=== PATIENT | female | born 1990 | race Caucasian/White ===

== ENCOUNTER 2019-03-29 11:20 | Inpatient (IN) | payer MEDICAID, OTHER ==
[~2019-03-29] VITALS: Ht 157.5 cm; Wt 88.4 kg
[2019-03-29 11:38] VITALS: BP 135/77; PULSE 67; RESP 19; Ht 157.5 cm; Wt 88.4 kg
[2019-03-29] MEDS ORDERED: PREN-99 PO (11:40)
--- NOTE | 2019-03-29 14:30 | TRIAGE ---
OB Triage Datetime Report Generated by CPN: 03/29/2019 14:30 Datetime: 03/29/2019 13:10 Stage of : Antepartum Datetime: 03/29/2019 11:43 Stage of : OB Triage Assessment Type: Triage Maternal Assessment Level of Consciousness: Fully Conscious DTR's/Clonus: DTRs 2+; No Clonus Headache: Denies Blurred Vision: No Respiratory Effort: Unlabored; Regular Rhythm; Equal Expansion Breath Sounds, Left: Clear and Equal Breath Sounds, Right: Clear and Equal Nausea/Vomiting: Denies RUQ Epigastric Pain: Denies Lower Extremities Edema: None Degree: None Upper Extremities Edema: None Degree: None Facial Edema: None Temperature Route: Oral Fall Risk Assessment History of Falling: (0) No Secondary Diagnosis: (0) No Ambulatory Aid: (0) Bedrest/Nurse Assist IV Therapy: (0) No Gait: (0) Normal/Bedrest/Immobile Mental Status: (0) Oriented to Own Ability Fall Score: 0 Fall Risk Score Definition: No Risk: No action required Labor Evaluation Frequency: x2 Monitor Mode: External Duration (sec)2399: 40 Quality: Mild Resting Tone [place]: Relaxed Heart Rate FHR Baseline Rate: 125 Monitor Mode: External US FHR Baseline Changes: No Baseline Change Variability: Moderate 6-25 bpm Accelerations: 15X15 Decelerations: None Category: Category I Pain Assessment Pain Scale: 7 Pain Presence: Constant Pain Type: Ache Pain Location: Back Datetime: 03/29/2019 11:41 Time of Arrival: 03/29/2019 11:17 EGA: 35.0 Arrived By: Ambulatory Arrived From: Home Chief Complaint: back pain and epigastric pain Movement: Present Contractions: Denies/Absent Rupture of Membranes: Denies Vaginal Bleeding: None Vaginal Discharge: Denies Recent Sexual Intercouse: Denies Abdominal Trauma: Not Applicable Patient Complaints: Back Pain; Epigastric Pain Initial Plan: WILL, EFM
[2019-03-29] MEDS ORDERED: MAGNESIUM SULFATE 4 GM/100 ML 100 ML IV ONE (15:00)
[2019-03-29] MEDS: LACTATED RINGER'S 1,000 ML IV SCH (15:21)
[2019-03-29] MEDS: BETAMET NA PHOS/AC(6 MG/ML) 2 ML INJ SYG IM SCH (15:29)
[2019-03-29] MEDS: MAGNESIUM SULFATE 20 GM/500 ML 500 ML IV SCH (16:00)
--- NOTE | 2019-03-29 17:35 | HP ---
Date/Time of Note Date/Time of Note DATE: 03/29/19 TIME: 17:31 OB - History Hx of Present Free Text/Dictation March 29, 2019 : 3 Para: 0 Spontaneous : 0 Therapeutic : 0 Other Concerns: 28-year-old G3, P0 with IUP at 35 weeks and mild chronic hypertension was sent from the clinic for further evaluation due to borderline elevated blood pressure during office visit in the range of 130s 140s over 80s. Patient also was noted to have borderline lower AKBAR. AKBAR was 7.3. Patient denies any leaking of fluid, vaginal bleeding decreased movement. Reports back pain and epigastric pain. Reports pain in the right upper quadrant and right upper back. Per patient pain starts from the back and radiates to the front right upper quadrant. Patient denies any headache, blurred vision, scotoma, leaking of fluid, vaginal bleeding or decreased movement. During observation monitoring triage blood pressure is between 130s 150s over 80s. Noted to have elevated LFT and PIH lab mildly. Due to concern for possible superimposed preeclampsia patient admitted for observation and 24-hour urine protein collection and close monitoring of blood pressure as well as a sta rted on magnesium due to right upper quadrant pain as well as elevated LFT. Past Family/Social History * Past Medical, Surgical, Family and Obstetric Histories reviewed from chart. OB Admission Exam Vital Signs Vital Signs Vital Signs Date Temp Pulse Resp B/P (MAP) Pulse Ox O2 O2 Flow FiO2 Time Delivery Rate 03/29/19 97.8 67 19 135/77 Room Air 11:38 (96) Physical Exam HEENT: WNL Lungs: Clear Abdomen: WNL Extremities: Normal Cervical Dilatation: None Effacement: 0% Membranes: Intact Heart Rate: 130's Accelerations: Accelerations Present Varibility: Moderate Contractions on Admission: >10 Minutes Apart Intensity: Mild Last 72 hours Lab Results CBC & BMP 03/29/19 12:11 Liver Function Test 03/29/19 12:11 Alanine Aminotransferase (ALT/SGPT) 84 H Albumin 3.6 Alkaline Phosphatase 193 H Aspartate Amino Transf (AST/SGOT) 62 H Direct Bilirubin 0.00 Total Protein 7.5 OB Assessment/Plan Other Assessment: IUP at 35 weeks Epigastric pain and right upper back pain with elevated blood pressure as well as right upper quadrant pain associated with elevated mildly liver function test Due to concern for possible superimposed preeclampsia patient will be admitted for observation and close monitoring Patient will be started on magnesium for seizure prophylaxis we will monitor blood pressure closely. Start 24-hour urine protein collection And start steroid. Perinatology/neonatology consultation Elevated liver function test unclear etiology. Right upper quadrant pain with radiation to the back. Hepatitis panel requested as well as right upper quadrant ultrasound with lipase and amylase Follow-up with the results Continuous monitoring Strict urine output measurements Magnesium sulfate per protocol Plan of care discussed with the patient and with the RN MICHAELA CAMPBELL MD March 29, 2019 17:35
[2019-03-30] MEDS: MAGNESIUM SULFATE 20 GM/500 ML 500 ML IV SCH ×4 (01:28→22:30)
[2019-03-30] MEDS: LACTATED RINGER'S 1,000 ML IV SCH ×2 (01:29→14:22)
[2019-03-30] MEDS: PRENATAL VITAMIN PO SCH (09:09)
--- NOTE | 2019-03-30 12:01 | CONS ---
DATE OF ADMISSION: 03/29/2019 DATE OF CONSULTATION: 03/30/2019 HISTORY OF PRESENT ILLNESS: The patient is a at 35 weeks, presented with elevated blood pressu re, epigastric pain, elevated liver function tests. RECOMMENDATIONS: Delivery secondary to severe preeclampsia over 34 weeks and continue magnesium sulf ate 24 hours after delivery. Dictated By: JUANA VELASQUEZ MD ST/NTS Conf#: [id number] DID#: [id number] CC: KENIA REYES MD;*EndCC*
--- NOTE | 2019-03-30 12:33 | QN ---
Documentation Comment progress note patient seen and evaluated patient report her epigstric mildly improved with mg vs stable afebrile ab gravid, mild epigastric tenderness extremity no edema no calf tenderness a/iup at 35 wks ga, preeclampsia with severe features desire cd vs induction p/ keep pt npo neonatology consult steroid treatment cosent for amina CD r/b/a explained in detail KENIA REYES MD March 30, 2019 12:33
--- NOTE | 2019-03-30 12:36 | HPN ---
Date/Time of Note Date/Time of Note DATE: 03/30/19 TIME: 12:35 Interval H&P Admission Note Pt. seen H&P reviewed: Systems changes noted below iup at 35 wks ga, preeclampsia with severe features, desire elective CD KENIA REYES MD March 30, 2019 12:36
[2019-03-30] MEDS: BETAMET NA PHOS/AC(6 MG/ML) 2 ML INJ SYG IM SCH (14:14)
[2019-03-30] MEDS ORDERED: OXYTOCIN 30 UNITS/LR 500 ML IV PRN ×2 (15:00→19:30)
[2019-03-30] MEDS ORDERED: METHYLERGONOVINE 0.2 MG INJ IM PRN ×2 (15:00→19:30)
[2019-03-30] MEDS ORDERED: CEFAZOLIN 2 GM/50 ML (PMX) 50 ML IVPB SCH (15:00)
[2019-03-30] MEDS ORDERED: MISOPROSTOL 200 MCG TAB PR PRN ×2 (15:00→19:30)
[2019-03-30] MEDS ORDERED: CARBOPROST 250 MCG INJ IM PRN ×2 (15:00→19:30)
--- NOTE | 2019-03-30 15:18 | CONS ---
Consultation Date/Type/Reason Admit Date/Time March 29, 2019 at 13:10 Date of Consultation: March 30, 2019 Type of Consult Neonatology Reason for Consultation PIH and schedule delivery Date/Time of Note DATE: 03/30/19 TIME: 14:48 Hx of Present Illness Asked to do neonatology, Mother is 28-year-old 3 para 0 TAB 2 per chart and earlier history (g ravida 2 TAB 1 per mom admitted for high blood pressure. Also has elevated liver functions. ultrasound in January was normal except for large for gestational age but no signs of diabetes. Mother denies illnesses medication smoking drugs alcohol although used to smoke before the She is blood type O- RPR negative hepatitis B surface antigen negative HIV negative group B strep was not done. She received RhoGam during this but does not remember if she received RhoGam after the therapeutic . She received betamethasone 2 doses the last one on 03/30 at 1250 hrs. She was started on magnesium sulfate on 03/29. Mother was accompanied in room by her mom. There is a involved. We spoke extensively about the risk for neurodevelopmental problems related to pr ematurity and more importantly about risks related to prematurity such as respiratory, apnea, infection, hyperbilirubinemia, blood sugar and electrolyte derangements, feeding difficulties requiring gavage feeding and intravenous fluids and many other problems related to prematurity. Possible 2 or 3 weeks hospitalization depending on problems related to prematurity versus regular couplet care, breast-feeding encouraged. I answered all mom's questions to her satisfaction. I spent about 25minutes with the mother between (her mother was also present) and more than 50% was related to counseling and coordination of care. Thank you for allowing me to assist in the care of this family NICU involvement as needed on your request. Past Medical History Home Meds Reported Medications Vit #76/Iron,Carb/FA (Pnv 29-1 Tablet) 1 Each Tablet, 1 EACH PO DAILY, TAB 03/29/19 Medications Current Medications Lactated Ringer's 1,000 ml @ 75 mls/hr [id number] IV Last administered on 03/30/19at 14:22; Admin Dose 75 MLS/HR; Start 03/29/19 at 14:31 Magnesium Sulfate 500 ml @ 50 mls/hr Q10H IV Last administered on 03/30/19at 11:32; Admin Dose 50 MLS/HR; Start 03/29/19 at 14:31 Betamethasone Acet/Betameth SodPhos (Celestone Soluspan) 12 mg Q24H IM Last administered on 03/30/19at 14:14; Admin Dose 12 MG; Start 03/29/19 at 15:30; Stop 03/30/19 at 15:31 Prenat Multivit/ [place]all/Iron/Folic Ac () 1 tab DAILY PO Last admin istered on 03/30/19at 09:09; Admin Dose 1 TAB; Start 03/30/19 at 09:00 Allergies: Coded Allergies: No Known Drug Allergies (Verified Allergy, Unknown, 03/29/19) Social History Smoking Status: Former smoker Exam/Review of Systems Exam Vitals Vital Signs Date Temp Pulse Resp B/P (MAP) Pulse Ox O2 O2 Flow FiO2 Time Delivery Rate 03/29/19 97.8 67 19 135/77 Room Air 11:38 (96) Intake and Output 03/29/19 03/29/19 03/30/19 1414:59 22:59 06:59 IntakeIntake Total 975 ml 1013.5 ml OutputOutput Total 1730 ml 2300 ml BalanceBalance -755 ml -1286.5 ml Results Result Diagram: 03/29/19 1211 03/29/19 1211 Results 24hrs Laboratory Tests Test 03/29/19 18:11 03/30/19 00:29 03/30/19 04:53 03/30/19 05:47 Magnesium Level 4.5 H 5.5 *H 5.8 *H Lab Scanned Report REFERENCE LAB Test 03/30/19 12:24 03/30/19 12:27 Prothrombin Time 12.4 Prothrombin Time 1.0 Ratio INR International 0.91 Normalized Ratio Activated 26.[address] Time Magnesium Level 6.2 *H Medications Medication Current Medications Lactated Ringer's 1,000 ml @ 75 mls/hr [id number] IV Last administered on 03/30/19at 14:22; Admin Dose 75 MLS/HR; Start 03/29/19 at 14:31 Magnesium Sulfate 500 ml @ 50 mls/hr Q10H IV Last administered on 03/30/19at 11:32; Admin Dose 50 MLS/HR; Start 03/29/19 at 14:31 Betamethasone Acet/Betameth SodPhos (Celestone Soluspan) 12 mg Q24H IM Last administered on 03/30/19at 14:14; Admin Dose 12 MG; Start 03/29/19 at 15:30; Stop 03/30/19 at 15:31 Prenat Multivit/ Turbine Attendant/Iron/Folic Ac () 1 tab DAILY PO Last administered on 03/30/19at 09:09; Admin Dose 1 TAB; Start 03/30/19 at 09:00 LILIAN PINEDA March 30, 2019 15:18
[2019-03-30] MEDS ORDERED: CITRIC ACID/NA CITRATE 30 ML CUP PO ONE (18:00)
--- NOTE | 2019-03-30 18:00 | PREAC ---
Date/Time of Note Date/Time of Note DATE: 03/30/19 TIME: 17:59 Anesthesia Eval and Record Evaluation Time Pre-Procedure Interview DATE: 03/30/19 TIME: 17:59 Age 28 Sex female NPO: 8 hrs Preoperative diagnosis pIH Planned procedure c section Past Medical History Past Medical History: Includes : Gestational age: (35), PIH Surgery & Anesthesia Issues No known issue Meds Anticoagulation: No Beta Willian within 24 hr: No Reason Beta Willian not given: Pt. not on B-Willian Reported Medications Vit #76/Iron,Carb/FA (Pnv 29-1 Tablet) 1 Each Tablet, 1 EACH PO DAILY, TAB 03/29/19 Current Medications Lactated Ringer's 1,000 ml @ 75 mls/hr [id number] IV Last administered on 03/30/19at 14:22; Admin Dose 75 MLS/HR; Start 03/29/19 at 14:31 Magnesium Sulfate 500 ml @ 50 mls/hr Q10H IV Last administered on 03/30/19at 11:32; Admin Dose 50 MLS/HR; Start 03/29/19 at 14:31 Prenat Multivit/ Caramel Maker/Iron/Folic Ac () 1 tab DAILY PO Last administered on 03/30/19at 09:09; Admin Dose 1 TAB; Start 03/30/19 at 09:00 Cefazolin Sodium/ Dextrose 50 ml @ 100 mls/hr ONCE IVPB ; Start 03/30/19 at 15:00 Oxytocin/Lactated Ringer's 500 ml @ 0 mls/hr ONCE PRN IV .VAGINAL BLEEDING; Start 03/30/19 at 15:00 Methylergonovine Maleate (Methergine) 0.2 mg ONCE PRN IM .VAGINAL BLEEDING; Start 03/30/19 at 15:00 Carboprost Tromethamine (Hemabate) 250 mcg ONCE PRN IM .VAGINAL BLEEDING; Start 03/30/19 at 15:00 Misoprostol (Cytotec) 1,000 mcg ONCE PRN MN .VAGINAL BLEEDING; Start 03/30/19 at 15:00 Meds reviewed: Yes Allergies Coded Allergies: No Known Drug Allergies (Verified Allergy, Unknown, 03/29/19) Allergies Reviewed: Yes Labs/Studies Labs Reviewed: Reviewed by anesthesiologist Result Diagram: 03/29/19 1211 03/30/19 1224 Laboratory Tests 03/30/19 12:24 Blood Bank Test 03/30/19 12:24 Antibody Screen POSITIVE Blood Type O NEGATIVE Rh Immune Globulin Candidate NO test: Positive Studies: ECG (n/a), CXR (n/a) Pre-procedure Exam Last vitals Vital Signs Date Temp Pulse Resp B/P (MAP) Pulse Ox O2 O2 Flow FiO2 Time Delivery Rate 03/29/19 97.8 67 19 135/77 Room Air 11:38 (96) Airway: Adequate mouth opening Mallampati: Mallampati I Teeth: Normal Lung: Normal Heart: Normal ASA Physical Status ASA physical status: 2 Emergency: None Planned Anesthetic Neuraxial: Spinal Planned Pain Management Sub-arachniod narcotics Pre-operative Attestations Prior to commencing anesthesia and surgery, the patient was re-evaluated, there was verification of: *The patient's identity *The results of appropriate recent lab work and preoperative vital signs *The above evaluation not changing prior to induction *Anesthetic plan, risk benefits, alternative and complications discussed with patient/family; questions answered; patient/family understands, accepts and wishes to proceed. KISHORE ROJAS MD March 30, 2019 18:00
[2019-03-30] MEDS ORDERED: ONDANSETRON 4 MG INJ ONE (18:24)
[2019-03-30] MEDS ORDERED: METOCLOPRAMIDE 10 MG INJ ONE (18:24)
[2019-03-30] MEDS ORDERED: KETOROLAC 30 MG INJ ONE (18:24)
[2019-03-30] MEDS ORDERED: morphine SULFATE/PF (10 MG/10 ML) INJ ONE (18:24)
[2019-03-30] MEDS: CEFAZOLIN 2 GM/50 ML (PMX) 50 ML IVPB SCH (18:47)
[2019-03-30] MEDS ORDERED: EPHEDrine 25 MG/5 ML SYG ONE (18:56)
[2019-03-30] MEDS ORDERED: PHENYLephrine (100 MCG/ML) 10ML SYG ONE (18:56)
[2019-03-30] MEDS ORDERED: OXYTOCIN 30 UNITS/LR 500 ML IV ONE (19:21)
--- NOTE | 2019-03-30 19:24 | OPPN ---
Date/Time of Note Date/Time of Note DATE: 03/30/19 TIME: 19:22 Operative Report Planned Procedure Procedure date March 30, 2019 Procedure(s) primary low transverse CD Performed by see signature line Barrel Filler: ERIN CRUMP M.D. 2nd Barrel Filler none Pre-procedure diagnosis iup at 35 wks ga, preeclampsia with severe features, desire elective CD [id number] Anesthesia Type: [id number] spinal Post-Procedure Post-procedure diagnosis same Findings a viable female 8/9 weight 5lb 4oz. X 1 cord around neck. normal uterus tubes and ovaries Estimated Blood Loss: 500 - 600 mls (500) Specimen(s) none Grafts/Implant(s) none Complication(s) none KENIA REYES MD March 30, 2019 19:24
[2019-03-30] MEDS ORDERED: MAGNESIUM SULFATE 20 GM/500 ML 500 ML IV SCH (19:28)
[2019-03-30] MEDS ORDERED: OXYTOCIN 30 UNITS/LR 500 ML IV SCH (19:28)
[2019-03-30] MEDS ORDERED: OXYCODONE/ACETAMINOPHEN (5/325) TAB PO PRN ×2 (19:30)
[2019-03-30] MEDS ORDERED: NALOXONE (0.4 MG/ML) INJ IV PRN (19:30)
[2019-03-30] MEDS ORDERED: NACL 0.9% 3 ML SYG IV SCH ×3 (19:30)
[2019-03-30] MEDS ORDERED: LANOLIN HPA 1 PKT TOP PRN (19:30)
[2019-03-30] MEDS ORDERED: ONDANSETRON 4 MG INJ IV PRN ×2 (19:30)
[2019-03-30] MEDS ORDERED: CA GLUCONATE (GM) 10% 10ML INJ IV PRN ×2 (19:30)
[2019-03-30] MEDS ORDERED: morphine 2 MG INJ IV PRN ×6 (19:30)
[2019-03-30] MEDS ORDERED: MAGNESIUM SULFATE 4 GM/100 ML 100 ML IV SCH ×2 (19:30)
[2019-03-30] MEDS ORDERED: KETOROLAC 30 MG INJ IV PRN (19:30)
[2019-03-30] MEDS ORDERED: DIPHENHYDRAMINE 50 MG INJ IV PRN ×2 (19:30)
--- NOTE | 2019-03-30 19:44 | OPR ---
DATE OF OPERATION: 03/30/2019 PRIMARY DIAGNOSES: 1. Intrauterine at 35 weeks gestational age. 2. Preeclampsia with severe features. 3. Desires elective delivery. POSTOPERATIVE DIAGNOSES: 1. Intrauterine at 35 weeks gestational age. 2. Preeclampsia with severe features. 3. Desires elective delivery. PROCEDURE: Primary low transverse delivery via Pfannenstiel incision. SURGEON: Wes Reyes MD CONSULTING SOLUTION MANAGER: Chris Elliott MD ANESTHESIA: Spinal. COMPLICATIONS: None. ESTIMATED BLOOD LOSS: 500 mL. FINDINGS: A viable female, 8 and 9 respectively at 1 and 5 minutes, weight 5 pounds and 4 ounc es, x1 cord around the neck; normal uterus, tubes and ovaries. DESCRIPTION OF PROCEDURE: After explaining the risks, benefits and alternatives with the patient and consent signed in chart, the patient was taken to the operating room where spinal anesthesia was fou nd to be adequate. She was then prepared and draped in normal sterile fashion in dorsal position in dorsal supine position with a leftward tilt. A Pfannenstiel skin incision was then made with a scalp el and carried to the underlying of the fascia. The fascia was incised in midline. Incision was ext ended laterally with Lion scissors. The superior aspect of the fascial incision was grasped with cur loulou clamps, elevated and the underlying rectus muscles were dissected off bluntly. Attention was the n turned to the inferior aspect of the incision which in similar fashion was grasped, tented up with curved clamps and rectus muscles were dissected bluntly. Rectus muscle was in midline, per itoneum identified, tented up and sharply with Metzenbaum scissors. This incision was extended super iorly with good visualization of the bladder. The bladder blade was then inserted and the lower uter ine segment was incised in transverse fashion with a scalpel. The uterine incision was extended late rally. The bladder blade was removed and the 's head delivered atraumatically. The nose and m outh were suctioned, cord clamped and cut. The was handed off to waiting horticultural specialty grower inside. The p lacenta was then removed. The uterus exteriorized and cleared of all clots and debris. The uterine incision was repaired with 1-0 chromic in a running locked fashion. A second layer of same suture wa s used for imbrication obtaining excellent hemostasis. The uterus was returned to the abdomen. The gutters were cleared of all clots. The peritoneum and rectus abdominis muscles were reapproximated w ith 3-0 Vicryl in interrupted fashion. The fascia was reapproximated with 0 Vicryl in running fashio n. The subcutaneous tissue was reapproximated with 2-0 plain gut in a running fashion. The skin was closed with absorbable nathan. The patient tolerated procedure well. All counts were correct. Th e patient was taken to recovery room in stable condition. Dictated By: WES REYES MD ME/BERT Conf#: [id number] DID#: [id number] CC: LILIAN DOAN MD;*End*
[2019-03-30 22:30] VITALS: BP 133/62; PULSE 78; RESP 18
[2019-03-30 23:30] VITALS: BP 136/58; PULSE 77; RESP 18
--- NOTE | 2019-03-30 23:30 | PAC ---
Date/Time of Note Date/Time of Note DATE: 03/30/19 TIME: 23:30 Post-Anesthesia Notes Post-Anesthesia Note Last documented vital signs Vital Signs Date Temp Pulse Resp B/P (MAP) Pulse Ox O2 O2 Flow FiO2 Time Delivery Rate 03/30/19 97.9 78 18 133/62 98 Room Air 22:30 (85) Activity: WNL Respiratory function: WNL Cardiovascular function: WNL Mental status: Baseline Pain reasonably controlled: Yes Hydration appropriate: Yes Nausea/Vomiting absent: No KISHORE ROJAS MD March 30, 2019 23:30
[2019-03-31] VITALS (14 sets, daily range): BP systolic 82–149; BP diastolic 45–65; PULSE 65–84; RESP 16–18
[2019-03-31] MEDS: LACTATED RINGER'S 1,000 ML IV SCH ×2 (00:52→14:32)
[2019-03-31] MEDS: CEFAZOLIN 2 GM/50 ML (PMX) 50 ML IVPB SCH ×2 (04:53→13:19)
[2019-03-31] MEDS: KETOROLAC 30 MG INJ IV PRN ×3 (04:57→18:40)
[2019-03-31] MEDS: IBUPROFEN 600 MG TAB PO SCH ×4 (06:00→18:00)
[2019-03-31] MEDS: MAGNESIUM SULFATE 20 GM/500 ML 500 ML IV SCH ×3 (06:09→16:31)
[2019-03-31] MEDS: PRENATAL VITAMIN PO SCH (10:11)
--- NOTE | 2019-03-31 10:39 | QN ---
Documentation Comment Postop day #1 Status post primary low transverse for preeclampsia with severe features Patient stable and afebrile Vital signs stable VS - Last 72 Hours, by Label Date Temp Pulse Resp B/P (MAP) Pulse Ox O2 O2 Flow FiO2 Time Delivery Rate 03/31/19 72 18 107/54 Room Air 09:00 (71) 03/31/19 97.7 65 17 116/45 95 Room Air 08:00 (68) 03/31/19 98.1 69 18 140/62 06:30 (88) 03/31/19 80 18 134/65 05:30 (88) 03/31/19 98.1 81 18 125/56 99 Room Air 04:30 (79) 03/31/19 98.1 84 18 121/51 98 Room Air 03:30 (74) 03/31/19 98.0 82 18 149/58 98 Room Air 00:30 (88) 03/30/19 77 18 136/58 23:30 (84) 03/30/19 97.9 78 18 133/62 98 Room Air 22:30 (85) 03/29/19 97.8 67 19 135/77 Room Air 11:38 (96) Hematology - 72 Hrs Test 03/29/19 12:11 03/31/19 07:20 Hematocrit 35.2 % (37.0-47.0) L 29.7 % (37.0-47.0) L Hemoglobin 11.5 g/dl (12.0-16.0) L 9.6 g/dl (12.0-16.0) L Mean Corpuscular 29.2 pg (29.0-33.0) 29.3 pg (29.0-33.0) Hemoglobin Mean Corpuscular 32.7 g/dl (32.0-37.0) 32.3 g/dl (32.0-37.0) Hemoglobin Concent Mean Corpuscular Volume 89.3 fl (82.0-101.0) 90.5 fl (82.0-101.0) Mean Platelet Volume 11.0 fl (7.4-10.4) H 10.9 fl (7.4-10.4) H Platelet Count 271 10^3/UL (140-415) 301 10^3/UL (140-415) Red Blood Count 3.94 10^6/ul (4.20-5.40) 3.28 10^6/ul (4.20-5.40) L L Red Cell Distribution 12.7 % (11.5-14.5) 13.2 % (11.5-14.5) Width White Blood Count 9.7 10^3/ul (4.8-10.8) 15.5 10^3/ul (4.8-10.8) #H Chemistry Test 03/29/19 12:11 03/29/19 18:11 03/30/19 00:29 03/30/19 02:47 Sodium Level 141 136 mmol/L (135-144 mmol/L (135-14 ) 4) Potassium 4.1 4.6 Level mmol/L (3.5-5.1 mmol/L (3.5-5. ) 1) Chloride Level 111 106 mmol/L (97-110) mmol/L (97-110 H ) Carbon Dioxide 23 20 Level mmol/L (21-31) mmol/L (21-31) L Anion Gap 7 (5-13) 10 (5-13) Blood Urea 6 mg/dl 5 mg/dl Nitrogen (7-20) L (7-20) L Creatinine 0.52 0.49 mg/dl (0.44-1.0 mg/dl (0.44-1. 0) 00) Est Glomerular > 60 Filtrat mL/min (>60) Rate mL/min Glucose Level 101 114 mg/dl (70-220) mg/dl (70-220) Uric Acid 5.0 mg/dl (3.1-7.9) Calcium Level 9.5 7.4 mg/dl (8.4-10.2 mg/dl (8.4-10. ) 2) L Total 0.3 0.4 Bilirubin mg/dl (0.2-1.3) mg/dl (0.2-1.3 ) Direct 0.00 0.00 Bilirubin mg/dl (0.00-0.2 mg/dl (0.00-0. 0) 20) Indirect 0.3 0.4 Bilirubin mg/dl (0-1.1) mg/dl (0-1.1) Aspartate Amino 62 IU/L (15-46) 140 Transf (AST/SGO H IU/L (15-46) T) H Alanine 84 IU/L (13-69) 172 Aminotransferas H IU/L (13-69) e (ALT/SGPT) H Alkaline 193 220 Phosphatase IU/L (42-121) IU/L (42-121) H H Total Protein 7.5 6.8 g/dl (6.1-8.1) g/dl (6.1-8.1) Albumin 3.6 3.4 g/dl (3.3-4.9) g/dl (3.3-4.9) Globulin 3.90 g/dl (1.3-3.2) H Albumin/Globuli 0.92 n Ratio Amylase Level 48 U/L (11-123) Lipase 44 U/L (23-300) Magnesium 4.5 5.5 Level mg/dl (1.7-2.5 mg/dl (1.7-2.5 ) H ) *H Phosphorus 3.9 Level mg/dl (2.5-4.9 ) Lactate 603 Dehydrogenase IU/L (313-618) Test 03/30/19 05:47 03/30/19 12:24 03/30/19 12:27 03/30/19 18:15 Magnesium 5.8 6.2 6.2 Level mg/dl (1.7-2.5) mg/dl (1.7-2.5 mg/dl (1.7-2.5 *H ) *H ) *H Creatinine 0.53 mg/dl (0.44-1. 00) Test 03/31/19 00:37 03/31/19 07:20 Magnesium 6.4 6.8 Level mg/dl (1.7-2.5) mg/dl (1.7-2.5 *H ) *H Urine output 350 cc in 6 hours Abdomen soft, fundus firm Incision dressing clean,dry,intact Extremities nontender Assessment and plan Patient stable and doing well Continue with magnesium sulfate until 7 PM tonight Encouraged to ambulate Encouraged to increase p.o. hydration Continue with routine postop care SHELBY PEARSON MD March 31, 2019 10:39
[2019-04-01 03:55] VITALS: BP 113/57; PULSE 77; RESP 18
[2019-04-01] MEDS: IBUPROFEN 600 MG TAB PO SCH ×5 (06:00→23:30)
[2019-04-01 08:00] VITALS: BP 110/55; PULSE 74; RESP 18
[2019-04-01] MEDS: PRENATAL VITAMIN PO SCH (08:29)
--- NOTE | 2019-04-01 12:59 | QN ---
Documentation Comment P0D#2 is stable afebrile tolerates diet No VB +flatus+voids VS stable Gen NAD Abd soft NT ND Genitalia No blood at perineum --->Discharge plan tomorrow --->ambulation encouraged ERIN CRUMP M.D. April 01, 2019 12:59
[2019-04-01 16:00] VITALS: BP 139/86; PULSE 70; RESP 19
[2019-04-01 20:20] VITALS: BP_SYST 125; BP_SYST 134; BP_DIAS 70; BP_DIAS 80; PULSE 90; PULSE 98; RESP 18
[2019-04-02 03:50] VITALS: BP 130/72; PULSE 70; RESP 18
[2019-04-02] MEDS: IBUPROFEN 600 MG TAB PO SCH ×2 (05:44→12:15)
[2019-04-02 08:30] VITALS: BP 138/70; PULSE 62; RESP 19
--- NOTE | 2019-04-02 09:16 | PD.PPDC ---
KNIT GOODS MENDER Discharge Instruction Condition [id number] Patient Condition: Mtxyw2x Good Diet Pisze1Kt Diet: Ubwgp7b Resume Regular Diet Activity/Restrictions [id number] Activity: Qlgej2u Normal Activity May Shower Holbs4Xp Restrictions: Fknue4o No Exercising No Lifting No Driving No Sexual Activity Nothing in the Vagina No [place] No Tampons, douche Follow-up Follow-up with Physician: 1, Week/Weeks Return to clinic for [id number] PRESS OPERATOR Instructions: Vgitu3n Fever greater than 101 Chills Worsening abdominal pain Excessive Vaginal Bleeding More than 2 pads per hour Unable to tolerate diet Pxjgi0Qx OB Instructions: Bswkw4u Breast Tenderness Depression Blurried Vision Headache Adhhj2Bo Surgical Instructions: Veopb1s Incisional Drainage Incisional Redness KENIA REYES MD April 02, 2019 09:16
[2019-04-02] MEDS: PRENATAL VITAMIN PO SCH (12:15)
[2019-04-02 16:00] VITALS: BP 135/75; PULSE 62; RESP 17
--- NOTE | 2019-04-02 16:59 | DS ---
DATE OF ADMISSION: 03/29/2019 DATE OF DISCHARGE: 04/02/2019 PRIMARY DIAGNOSES: 1. Intrauterine at 35 weeks gestational age. 2. Preeclampsia with severe features. 3. Desires elective delivery. PROCEDURE: Primary low transverse delivery. CONDITION ON DISCHARGE: Stable. ACTIVITY: None per vagina, no heavy lifting x6 weeks. DIET: Regular. MEDICATIONS ON DISCHARGE: 1. Motrin. 2. Iron. 3. Colace. DISCHARGE SUMMARY: Ms. Dari Tena underwent a primary delivery on 03/30/2019. She stearns d a viable female, 8 and 9 respectively at 1 and 5 minutes, weight 5 pounds and 4 ounces. She had an uneventful postop day 1, 2 and 3. Her incision is clean, dry and intact. She is ambulating, tolerating diet, positive flatulence, positive bowel movement. She will follow up in 1 week for post /post OP care. Strict preeclamptic precautions were given. Dictated By: KENIA IYER/BERT Conf#: [id number] DID#: [id number]
--- NOTE | 2019-04-03 17:27 | DELSUM ---
Delivery Summary A-C Datetime Report Generated by CPN: 04/03/2019 17:26 DELIVERY PERSONNEL Integrity Specialist: Orel, Melia MATERNAL INFORMATION Delivery Anesthesia: Spinal Medications in Delivery: see anesthesia records Delivery QBL (ml): 500 Placenta Cultured: No Maternal Complications: None Other Maternal Complications: former heavy smoker who quit first trimester of this , LABOR SUMMARY EDC: 05/03/2019 00:00 No. Babies in Womb: 1 Attempted: No Labor Anesthesia: None LABOR INFORMATION Reason for Induction: Not Applicable Oxytocin: N/A Group B Beta Strep: Not Done Antibiotics # of Doses: ancef 2 gm x 1 Antibiotics Time of Last Dose: 03/30/2019 18:42 Steroids Given: Full Course; <24Hrs before Delivery Reason Steroids Not Administered: Not Applicable MEMBRANES Membranes Rupture Method: Artificial Rupture of Membranes: 03/30/2019 18:56 Length of Rupture (hr): 0.02 Amniotic Fluid Color: Clear Amniotic Fluid Amount: Small Amniotic Fluid Odor: None STAGES OF LABOR Stage 3 hr: 0 Stage 3 min: 1 CSECTION DELIVERY Primary Indication: Other Other Primary Indication: preeclapsia CSection Urgency: Elective CSection Incidence: Primary Labor: N/A Elective: N/A CSection Incision: Lower Uterine Transverse BABY A INFORMATION Delivery Date/Time: 03/30/2019 18:57 Method of Delivery: Born in Route : No : N/A Forceps: N/A Vacuum Extraction: N/A Shoulder Dystocia : No SHOULDER DYSTOCIA BABY A Infant Delivery Date/Time: 03/30/2019 18:57 PRESENTATION/POSITION BABY A Presentation: Cephalic Cephalic Presentation: Vertex Vertex Position: Left Occipital Anterior Breech Presentation: N/A PLACENTA INFORMATION BABY A Placenta Delivery Time : 03/30/2019 18:58 Placenta Method of Delivery: Manual Removal Placenta Status: Delivered SCORES BABY A Heart Rate 1 min: >100 bpm Resp Effort 1 min: Good Cry Reflex Irritability 1 min: Cough/Sneeze/Pulls Away Muscle Tone 1 min: Active Motion Color 1 min: Blue/Pale Resuscitation Effort 1 min: Tactile Stimulation SCORE 1 MIN: 8 Heart Rate 5 min: >100 bpm Resp Effort 5 min: Good Cry Reflex Irritability 5 min: Cough/Sneeze/Pulls Away Muscle Tone 5 min: Active Motion Color 5 min: Body [place], Extremit Blue Resuscitation Effort 5 min: Tactile Stimulation SCORE 5 MIN: 9 INFANT INFORMATION BABY A Gestational Age at Delivery: 35.1 Gestational Status: Late - 34- 36.6 Weeks Infant Outcome : Liveborn Condition : Stable Infant Sex: Female IDENTIFICATION/MEDS BABY A ID Band Number: [id number] ID Band Location: Right Leg; Left Arm Sensor Applied: Yes Sensor Number: [id number] Sensor Location : Cord Clamp Vitamin K Given : Not Given Erythromycin Given: Not Given WEIGHT/LENGTH BABY A Birthweight (gm): 2375 Infant Weight (lb): 5 Infant Weight (oz): 4 Infant Length (in): 17.75 Length (cm): 45.09 CORD INFORMATION BABY A No. Cord Vessels: 3 Nuchal Cord : Around Neck x1, Loose Cord Blood Taken: Yes Suction: Mouth; Nose ASSESSMENT BABY A Infant Complications: Oligohydramnios Infant Complications- Other: slight oligo Physical Findings at Delivery: Within Normal Limits Infant Respirations: Appears Normal Vp Communications/ALS Called : No Care By: JESSIE Haley Transferred To: Remains with Mother
== END 2019-04-02 17:20 | disposition home or self-care (01) | DRG 788 ==
LOC: OBT 11:20 → L-D 11:23 → OBT 13:10 → L-D 13:10 → PP1 03-30 22:22
PROVIDERS: ADMIT Obstetrics & Gynecology; ATTEND Obstetrics & Gynecology
PROC: 10D00Z1 Extraction of Products of Conception, Low, Open Approach (ICD-10-PCS; principal; 2019-03-30 18:30)
DX: O60.13X0 Preterm labor second trimester with preterm delivery third trimester, not applicable or unspecified (principal); O14.14 Severe pre-eclampsia complicating childbirth; O69.81X0 Labor and delivery complicated by cord around neck, without compression, not applicable or unspecified; Z3A.35 35 weeks gestation of pregnancy; Z37.0 Single live birth
CPT/HCPCS: 76705; 76815; 76818; 80053; 80069; 80076; 80307; 81001; 82150; 82565; 82575; 82784; 83615; 83690; 83735; 84156; 84560; 85025; 85384; 85610; 85730; 86592; 86803; 86850; 86870; 86885; 86900; 86901; 87340; 99464; G0463; J0690; J0702; J1885; J2274; J2370; J2405; J2590; J2765; J2790; J3475; J7120